=== PATIENT | female | born 1985 | race American Indian/Alaskan Native ===

== ENCOUNTER 2017-07-18 17:53 | Outpatient (CLI) | payer MEDICAID ==
[2017-07-18 18:45] VITALS: BP 120/70
== END 2017-07-18 20:22 | disposition home or self-care (01) ==
LOC: TRG 17:53
PROVIDERS: ATTEND Obstetrics & Gynecology Gynecology
DX: O47.03 False labor before 37 completed weeks of gestation, third trimester (principal); Z3A.36 36 weeks gestation of pregnancy

== ENCOUNTER 2021-09-11 14:57 | Emergency (ER) | payer MEDICAID ==
[2021-09-11 15:41] VITALS: BP 150/84
--- NOTE | 2021-09-11 15:58 | Emergency Department Report ---
ED Extremity Problem HPI - General Chief complaint: Extremity Injury, Upper Stated complaint: FINGER PAIN Time Seen by Provider: 09/11/21 15:49 Source: patient Mode of arrival: Ambulatory Limitations: No Limitations - History of Present Illness Initial comments: Patient is a 36-year-old female presents emergency room with complaints of right thumb pain that began approximately 4 days ago. Patient states that she went to a new nail salon approximately a week and a half ago and had her nails done. She states 4 days ago she began having pain and feeling like something was under the nail. She states that she remove that nails and realized that her fingernail was discolored. She denies any swelling, redness, drainage, fever, chills. No allergies to medicines - Related Data Previous Rx's Medication Instructions Recorded Last Taken Type Famotidine [Pepcid] 20 mg PO BID #40 tablet 02/24/16 Unknown Rx Vit-Fe Fumar-FA [ 1 tab PO QDAY #90 tablet 02/24/16 Unknown Rx Vitamin] Promethazine [Phenergan TAB] 25 mg PO Q6HR PRN #20 tab 02/24/16 Unknown Rx Allergies Allergy/AdvReac Type Severity Reaction Status Date / Time No Known Allergies Allergy Verified 02/24/16 11:32 ED Review of Systems ROS: Stated complaint: FINGER PAIN Other details as noted in HPI Comment: All other systems reviewed and negative ED Past Medical Hx - Social History Smoking Status: Never Smoker Substance Use Type: None - Medications Home Medications: Home Medications Medication Instructions Recorded Confirmed Last Taken Type Famotidine [Pepcid] 20 mg PO BID #40 tablet 02/24/16 Unknown Rx Vit-Fe Fumar-FA [ 1 tab PO QDAY #90 tablet 02/24/16 Unknown Rx Vitamin] Promethazine [Phenergan TAB] 25 mg PO Q6HR PRN #20 tab 02/24/16 Unknown Rx ED Physical Exam - General Limitations: No Limitations General appearance: alert, in no apparent distress - Head Head exam: Present: atraumatic, normocephalic - Eye Eye exam: Present: normal appearance - ENT ENT exam: Present: mucous membranes moist - Neurological Exam Neurological exam: Present: alert, oriented X3 - Psychiatric Psychiatric exam: Present: normal affect, normal mood - Skin Skin exam: Present: warm, dry, other (thickening and white present underneath the right thumb nail, no edema of the right thumb, no erythema, no increased warmth, no drainage, no induration or fluctuance, FROM, neurovascularly intact) ED Course Vital Signs 09/11/21 15:40 Temperature 97.6 F Pulse Rate 63 Respiratory 16 Rate Blood Pressure 150/84 [Right] O2 Sat by Pulse 100 Oximetry ED Medical Decision Making - Medical Decision Making Patient is a 36-year-old female presents emergency room with complaints of right thumb pain that began approximately 4 days ago. Patient states that she went to a new nail salon approximately a week and a half ago and had her nails done. She states 4 days ago she began having pain and feeling like something was under the nail. She states that she remove that nails and realized that her fingernail was discolored. She denies any swelling, redness, drainage, fever, chills. No allergies to medicines. Vitals are stable. On exam:thickening and white present underneath the right thumb nail, no edema of the right thumb, no erythema, no increased warmth, no drainage, no induration or fluctuance, FROM, neurovascularly intact. Examination appears most consistent with onychomycosis. Patient has had no trauma. She has no signs of cellulitis, abscess, septic joint. Advised patient Please soak your nail in Epson salt. Follow-up with your primary care doctor, it appears you have a fungal infection of your nail and will likely need oral antifungals which needs to be managed by your primary care doctor to watch your liver function. Return to emergency room immediately for any new or worsening symptoms including but not limited to swelling of the thumb, redness of the thumb,drainage, fever, chills, vomiting, etc. Critical care attestation.: If time is entered above; I have spent that time in minutes in the direct care of this critically ill patient, excluding procedure time. ED Disposition Clinical Impression: Kristin onychomycosis Thumb pain Qualifiers: Laterality: right Qualified Code(s): M79.644 - Pain in right finger(s) Disposition: HOME / SELF CARE / HOMELESS Is pt being admited?: No Does the pt Need Aspirin: No Condition: Stable Instructions: Fungal Nail Infection Additional Instructions: Please soak your nail in Epson salt. Follow-up with your primary care doctor, i t appears you have a fungal infection of your nail and will likely need oral antifungals which needs to be managed by your primary care doctor to watch your liver function. Return to emergency room immediately for any new or worsening symptoms including but not limited to swelling of the thumb, redness of the thumb,drainage, fever, chills, vomiting, etc. Referrals: your, primary care doctor [Other] - 2-3 Days Time of Disposition: 15:56 Print Language: SINHALA
== END 2021-09-11 16:15 | disposition home or self-care (01) ==
LOC: ED 14:57
DX: B35.1 Tinea unguium (principal); M79.644 Pain in right finger(s)
CPT/HCPCS: 99282

== ENCOUNTER 2022-03-05 09:55 | Emergency (ER) | payer MEDICAID ==
[2022-03-05 10:20] VITALS: BP 131/60
== END 2022-03-05 15:30 | disposition left against medical advice (07) ==
LOC: ED 09:55
DX: R11.2 Nausea with vomiting, unspecified (principal); R19.7 Diarrhea, unspecified; Z53.21 Procedure and treatment not carried out due to patient leaving prior to being seen by health care provider